=== PATIENT | male | born 2000 | race Two or more races ===

== ENCOUNTER 2019-11-26 12:33 | Emergency (ER) | payer OTHER, SELFPAY | END 2019-11-26 13:15 | disposition home or self-care (01) | LOC: NAV ERS 12:33 | DX: S60.410A Abrasion of right index finger, initial encounter (principal); L03.011 Cellulitis of right finger; J30.9 Allergic rhinitis, unspecified; W26.9XXA Contact with unspecified sharp object(s), initial encounter | CPT/HCPCS: 99283 ==